=== PATIENT | male | born 1970 | race Caucasian/White ===

== ENCOUNTER → 2022-01-10 | Outpatient (CLI) | payer OTHER ==
[~2022-01-10] MED LIST: TYLENOL EXTRA500 MG PO
[2022-01-10 11:23] LABS: HEMOGLOBIN 16.2 gm/dl (14.0-17.5); RED BLOOD COUNT 4.99 M/UL (4.20-5.50); WHITE BLOOD COUNT 7.3 K/UL (4.5-11.0)
[2022-01-10 11:42] LABS: BUN/CREATININE RATIO 10 (0-10)
== END ==
LOC: OPSV2 01-07 09:00 → EDSTATUS 10:00
PROVIDERS: Orthopaedic Surgery
DX: Z01.818 Encounter for other preprocedural examination (principal); M48.061 Spinal stenosis, lumbar region without neurogenic claudication; M54.16 Radiculopathy, lumbar region; Z20.822 Contact with and (suspected) exposure to COVID-19
CPT/HCPCS: 36415; 80048; 80076; 80307; 81001; 85027; 87081; 93005

== ENCOUNTER → 2022-01-14 | Outpatient (CLI) | payer OTHER | LOC: KOH-I 01-12 16:30 | DX: Z01.818 Encounter for other preprocedural examination (principal); M51.36 Other intervertebral disc degeneration, lumbar region; M51.26 Other intervertebral disc displacement, lumbar region; M99.63 Osseous and subluxation stenosis of intervertebral foramina of lumbar region | CPT/HCPCS: 72131 ==

== ENCOUNTER 2022-01-18 05:09 | Inpatient (IN) | payer OTHER ==
[~2022-01-18] VITALS: Ht 177.8 cm; Wt 63.7 kg
[2022-01-18 06:16] LABS: BUN/CREATININE RATIO 20 (0-10)
[2022-01-19 05:21] LABS: HEMOGLOBIN 11.9 gm/dl (14.0-17.5); RED BLOOD COUNT 3.74 M/UL (4.20-5.50); WHITE BLOOD COUNT 6.3 K/UL (4.5-11.0)
[2022-01-19 05:40] LABS: BUN/CREATININE RATIO 14 (0-10)
[2022-01-20 04:20] LABS: WHITE BLOOD COUNT 6.2 K/UL (4.5-11.0)
[2022-01-20 04:22] LABS: RED BLOOD COUNT 4.17 M/UL (4.20-5.50)
[2022-01-20 05:05] LABS: BUN/CREATININE RATIO 14 (0-10)
[2022-01-21 04:01] LABS: RED BLOOD COUNT 4.18 M/UL (4.20-5.50); WHITE BLOOD COUNT 7.5 K/UL (4.5-11.0)
[2022-01-21 04:15] LABS: BUN/CREATININE RATIO 13 (0-10)
[2022-01-22 02:52] LABS: HEMOGLOBIN 11.9 gm/dl (14.0-17.5); WHITE BLOOD COUNT 7.8 K/UL (4.5-11.0)
[2022-01-22 02:56] LABS: RED BLOOD COUNT 3.76 M/UL (4.20-5.50)
[2022-01-22 03:21] LABS: BUN/CREATININE RATIO 12 (0-10)
[2022-01-23 02:42] LABS: HEMOGLOBIN 11.5 gm/dl (14.0-17.5); RED BLOOD COUNT 3.7 M/UL (4.20-5.50); WHITE BLOOD COUNT 6.1 K/UL (4.5-11.0)
[2022-01-23 03:15] LABS: BUN/CREATININE RATIO 11 (0-10)
--- NOTE | 2022-01-24 10:50 | NUR ---
[employer] W[employer]ER WITH DR. KASSIDY TOURE MD WILL E RX PAIN MEDICATION FOR PT FROM OFFICE
== END 2022-01-24 11:15 | disposition home or self-care (01) | DRG 455 ==
LOC: OR 05:09 → CCU 14:41 → PROG CARE 01-19 15:37
PROVIDERS: Internal Medicine; ADMIT Orthopaedic Surgery
PROC: 0SG0071 Fusion of Lumbar Vertebral Joint with Autologous Tissue Substitute, Posterior Approach, Posterior Column, Open Approach (ICD-10-PCS; 2022-01-18)
PROC: 0SG30AJ Fusion of Lumbosacral Joint with Interbody Fusion Device, Posterior Approach, Anterior Column, Open Approach (ICD-10-PCS; 2022-01-18)
PROC: 0SG3071 Fusion of Lumbosacral Joint with Autologous Tissue Substitute, Posterior Approach, Posterior Column, Open Approach (ICD-10-PCS; 2022-01-18)
PROC: 00NY0ZZ Release Lumbar Spinal Cord, Open Approach (ICD-10-PCS; 2022-01-18)
PROC: 01NB0ZZ Release Lumbar Nerve, Open Approach (ICD-10-PCS; 2022-01-18)
PROC: 01NR0ZZ Release Sacral Nerve, Open Approach (ICD-10-PCS; 2022-01-18)
PROC: 0ST20ZZ Resection of Lumbar Vertebral Disc, Open Approach (ICD-10-PCS; 2022-01-18)
PROC: 0ST40ZZ Resection of Lumbosacral Disc, Open Approach (ICD-10-PCS; 2022-01-18)
PROC: 4A11X4G Monitoring of Peripheral Nervous Electrical Activity, Intraoperative, External Approach (ICD-10-PCS; 2022-01-18)
PROC: 0SG00AJ Fusion of Lumbar Vertebral Joint with Interbody Fusion Device, Posterior Approach, Anterior Column, Open Approach (ICD-10-PCS; principal; 2022-01-18 07:30)
DX: M51.36 Other intervertebral disc degeneration, lumbar region (principal); M48.061 Spinal stenosis, lumbar region without neurogenic claudication; Z20.822 Contact with and (suspected) exposure to COVID-19; J30.2 Other seasonal allergic rhinitis; F41.9 Anxiety disorder, unspecified; F10.10 Alcohol abuse, uncomplicated; F32.A Depression, unspecified; Z96.643 Presence of artificial hip joint, bilateral; F17.200 Nicotine dependence, unspecified, uncomplicated; Z88.5 Allergy status to narcotic agent; Z79.899 Other long term (current) drug therapy
CPT/HCPCS: 36415; 71045; 71260; 72100; 72110; 76000; 80048; 83735; 85025; 85027; 85610; 85730; 86850; 86900; 86901; 97116; 97116-GP-CQ; 97161; 97166; 97530-GP-CQ; 97535; C1713; C1762; J0690; J1040; J1100; J1170; J1644; J1885; J2001; J2250; J2270; J2370; J2405; J2704; J3010; J3370; J7030; J7040; J7050; J7120; Q9967

== ENCOUNTER 2022-02-04 13:56 | Inpatient (IN) | payer OTHER ==
[~2022-02-04] VITALS: Ht 177.8 cm; Wt 62.6 kg
[2022-02-04] MEDS ORDERED: ROXICODONE TAB 55 MG PO (14:42)
[2022-02-04] MEDS ORDERED: PAIN RELIEF EX500 MG PO (14:43)
[2022-02-04 15:35] LABS: HEMOGLOBIN 13.1 gm/dl (14.0-17.5); RED BLOOD COUNT 4.2 M/UL (4.20-5.50)
[2022-02-04 15:52] LABS: BUN/CREATININE RATIO 22 (0-10)
[2022-02-05 05:56] LABS: HEMOGLOBIN 11.2 gm/dl (14.0-17.5); WHITE BLOOD COUNT 10.4 K/UL (4.5-11.0)
[2022-02-05 05:57] LABS: RED BLOOD COUNT 3.6 M/UL (4.20-5.50)
--- NOTE | 2022-02-05 06:06 | NUR ---
DRESSING TO LOWER BACK CHANGED TO ABD PAD AND PAPER TAPE TWICE THIS SHIFT. FIRST TIME AT 2200 ON 02/04/22, SECOND TIME AT 0300 ON 02/05/22.
[2022-02-05 06:29] LABS: BUN/CREATININE RATIO 12 (0-10)
[2022-02-05 10:09] LABS: CANDIDA ALBICANS Not Detected (Negative); CANDIDA KRUSEI Not Detected (Negative); CANDIDA TROPICALIS Not Detected (Negative); ESCHERICHIA COLI Not Detected (Negative); HAEMOPHILUS INFLUENZAE Not Detected (Negative); KLEBSIELLA OXYTOCA Not Detected (Negative); KLEBSIELLA PNEUMONIAE Not Detected (Negative); KPC-CARBAPENEM-RESISTANCE GENE Not Detected (Negative); PROTEUS Not Detected (Negative); PSEUDOMONAS AERUGINOSA Not Detected (Negative); SERRATIA MARCESANS Not Detected (Negative); STREP AGALACTIAE (GROUP B) Not Detected (Negative); STREP PYOGENES (GROUP A) Not Detected (Negative); STREPTOCOCCUS Not Detected (Negative); vanA/B (VANCOMYCIN RESIST GENE Not Detected (Negative)
[2022-02-05 11:30] LABS: STAPHYLOCOCCUS DETECTED (Negative); STAPHYLOCOCCUS AUREUS DETECTED (Negative)
[2022-02-06 04:25] LABS: HEMOGLOBIN 10.6 gm/dl (14.0-17.5); RED BLOOD COUNT 3.43 M/UL (4.20-5.50); WHITE BLOOD COUNT 7.9 K/UL (4.5-11.0)
[2022-02-06 04:50] LABS: BUN/CREATININE RATIO 9 (0-10)
--- NOTE | 2022-02-06 13:14 | NUR ---
Patient left for OR at this time.
[2022-02-06 16:07] LABS: HEMOGLOBIN 10.2 gm/dl (14.0-17.5); RED BLOOD COUNT 3.33 M/UL (4.20-5.50)
[2022-02-06 16:08] LABS: WHITE BLOOD COUNT 13.9 K/UL (4.5-11.0)
[2022-02-06 16:32] LABS: BUN/CREATININE RATIO 6 (0-10)
--- NOTE | 2022-02-06 16:51 | NUR ---
Patient back from OR at this time. Stable condition. Dressing to incision [place], dry and intact. Will continue to monitor.
--- NOTE | 2022-02-06 17:41 | NUR ---
Notified Dr. Taylor of blood pressure reading 83/44. Patient awake and alert. Patient on side at time of blood pressure reading related to recent surgery. Patient receiving NS fluids as ordered. No new orders at this time.
[2022-02-07 04:08] LABS: HEMOGLOBIN 10.2 gm/dl (14.0-17.5); RED BLOOD COUNT 3.35 M/UL (4.20-5.50); WHITE BLOOD COUNT 12.5 K/UL (4.5-11.0)
[2022-02-07 05:02] LABS: BUN/CREATININE RATIO 8 (0-10)
--- NOTE | 2022-02-07 16:45 | NUR ---
patient ambulates using walker with 1 assist and scarlet well
[2022-02-08 07:24] LABS: BUN/CREATININE RATIO 7 (0-10)
[2022-02-08 08:47] LABS: HEMOGLOBIN 9.6 gm/dl (14.0-17.5); RED BLOOD COUNT 3.13 M/UL (4.20-5.50)
[2022-02-08 08:50] LABS: WHITE BLOOD COUNT 8.3 K/UL (4.5-11.0)
--- NOTE | 2022-02-08 20:01 | NUR ---
PATIENT WAS NOTICIED AMBULATING IN THE [facility] WITH FAMILY MEMEBER. ASKED PATIENT TO WAIT UNTIL A STAFF MEMBER COULD WALK WITH HIM. PATIENT DECLINED. FALL RISKS WERE EXPLAINED AND PATIENT WAS EDUCATED ON SAFETY. NON SLIP SOCKS ARE IN PLACE. PATIENT VERBALIZES UNDERSTANDING AND WISHES TO PROCEED.
[2022-02-09 04:24] LABS: HEMOGLOBIN 9.1 gm/dl (14.0-17.5); RED BLOOD COUNT 2.98 M/UL (4.20-5.50); WHITE BLOOD COUNT 9.9 K/UL (4.5-11.0)
[2022-02-09 04:57] LABS: BUN/CREATININE RATIO 10 (0-10)
[2022-02-10 03:09] LABS: HEMOGLOBIN 8.7 gm/dl (14.0-17.5); RED BLOOD COUNT 2.89 M/UL (4.20-5.50); WHITE BLOOD COUNT 10.6 K/UL (4.5-11.0)
[2022-02-10 04:04] LABS: BUN/CREATININE RATIO 13 (0-10)
[2022-02-10 08:17] LABS: RPR Non Reactive (Non Reactive)
[2022-02-10 11:14] LABS: HIV AB/P24 AG SCREEN Non Reactive (Non Reactive)
--- NOTE | 2022-02-10 12:16 | NUR ---
notified picc line nurse
[2022-02-10 14:17] LABS: HBSAG SCREEN Negative (Negative); HEP B CORE AB, TOT Positive (Negative); HEP C VIRUS AB >11.0 (0.0-0.9)
[2022-02-11 03:29] LABS: HEMOGLOBIN 8.8 gm/dl (14.0-17.5); RED BLOOD COUNT 2.95 M/UL (4.20-5.50)
[2022-02-11 03:31] LABS: WHITE BLOOD COUNT 6.5 K/UL (4.5-11.0)
[2022-02-11 03:52] LABS: BUN/CREATININE RATIO 12 (0-10)
[2022-02-12 05:14] LABS: HEMOGLOBIN 8.8 gm/dl (14.0-17.5); RED BLOOD COUNT 2.94 M/UL (4.20-5.50); WHITE BLOOD COUNT 7.7 K/UL (4.5-11.0)
[2022-02-12 05:48] LABS: BUN/CREATININE RATIO 11 (0-10)
[2022-02-14 02:48] LABS: HEMOGLOBIN 8.7 gm/dl (14.0-17.5); RED BLOOD COUNT 2.92 M/UL (4.20-5.50); WHITE BLOOD COUNT 9.3 K/UL (4.5-11.0)
[2022-02-14 03:25] LABS: BUN/CREATININE RATIO 12 (0-10)
[2022-02-14] MEDS ORDERED: BACLOFEN10 MG PO (12:13)
[2022-02-14] MEDS ORDERED: SODIUM CHLORIDE1 G1 PO (12:13)
[2022-02-14] MEDS ORDERED: RIFADIN 300 MG300 MG PO (12:13)
--- NOTE | 2022-02-14 13:54 | NUR ---
Report given to margarita admitting nurse
== END 2022-02-14 14:58 | DRG 500 ==
LOC: M/S 13:56
PROVIDERS: Internal Medicine; Internal Medicine Infectious Disease; Nurse Practitioner Family; Orthopaedic Surgery; ADMIT Internal Medicine
PROC: 0WPL0YZ Removal of Other Device from Lower Back, Open Approach (ICD-10-PCS; 2022-02-06)
PROC: 0XBG0ZZ Excision of Right Wrist Region, Open Approach (ICD-10-PCS; 2022-02-06)
PROC: 0KBF0ZZ Excision of Right Trunk Muscle, Open Approach (ICD-10-PCS; 2022-02-06)
PROC: 0J970ZZ Drainage of Back Subcutaneous Tissue and Fascia, Open Approach (ICD-10-PCS; 2022-02-06)
PROC: B24BZZZ Ultrasonography of Heart with Aorta (ICD-10-PCS; principal; 2022-02-06 13:24)
PROC: 02HV33Z Insertion of Infusion Device into Superior Vena Cava, Percutaneous Approach (ICD-10-PCS; 2022-02-10)
PROC: B548ZZA Ultrasonography of Superior Vena Cava, Guidance (ICD-10-PCS; 2022-02-10)
DX: T84.59XA Infection and inflammatory reaction due to other internal joint prosthesis, initial encounter (principal); A41.02 Sepsis due to Methicillin resistant Staphylococcus aureus; E22.2 Syndrome of inappropriate secretion of antidiuretic hormone; M46.26 Osteomyelitis of vertebra, lumbar region; Z20.822 Contact with and (suspected) exposure to COVID-19; Z96.643 Presence of artificial hip joint, bilateral; F10.10 Alcohol abuse, uncomplicated; F17.210 Nicotine dependence, cigarettes, uncomplicated; M06.9 Rheumatoid arthritis, unspecified; F12.10 Cannabis abuse, uncomplicated; M62.89 Other specified disorders of muscle; Y83.8 Other surgical procedures as the cause of abnormal reaction of the patient, or of later complication, without mention of misadventure at the time of the procedure; G89.29 Other chronic pain; M48.061 Spinal stenosis, lumbar region without neurogenic claudication; B19.20 Unspecified viral hepatitis C without hepatic coma; R53.81 Other malaise; Z88.5 Allergy status to narcotic agent; Z88.6 Allergy status to analgesic agent
CPT/HCPCS: ECHO; 36415; 71045; 72158; 73522; 80048; 80053; 80202; 80307; 81001; 82436; 83036; 83605; 83735; 84132; 84133; 84300; 85025; 85027; 85652; 86140; 86592; 86704; 86706; 86708; 86803; 87040; 87070; 87077; 87150; 87186; 87205; 87340; 87389; 93005; 93306; 97116; 97116-GP-CQ; 97161; 97166; A9577; C1751; G0480; J1100; J1650; J2001; J2185; J2250; J2270; J2405; J2704; J3010; J3370; J7030; J7070; J7120; U0002